=== PATIENT | female | born 1980 | race Hispanic/Latino ===

== ENCOUNTER 2023-05-10 16:07 | Inpatient (IN) | payer SELFPAY ==
[~2023-05-10 16:07] MED LIST: Iopamidol-370 76% 500 ML MDV (1 ML CHARGE) ONE
[2023-05-10] MEDS ORDERED: Morphine 4 MG/ML VIAL ONE (17:04)
[2023-05-10] MEDS ORDERED: Ondansetron PF 4 MG/2 ML Vial ONE (17:04)
[2023-05-10 17:13] LABS: #Eosinphils 0.1 thou/uL (0.0-0.7); #Monocytes 0.5 thou/uL (0.11-0.59); #Neutrophils 5.1 thou/uL (1.40-6.50); %Basophils 0.3 % (0.0-1.0); %Eosinophils 0.7 % (0.0-10.0); %Lymphocytes 21.7 % (21.0-51.0); %Monocytes 6.7 % (0.0-10.0); %Neutrophils 70.3 % (42.0-75.0); Mean Corpuscular HGB CONC 32.5 g/dL (32.0-36.0); Mean Corpuscular Hemoglobin 27.1 pg (27.0-31.0); Mean Corpuscular Volume 83.5 fl (78.0-98.0); Mean Platelet Volume 12.1 fL (7.4-10.4); Platelet Count 200 10x3/uL (130-400); RBC Distribution Width 14.5 % (11.5-14.5); Red Blood Cell (RBC) Count 4.42 mill/uL (4.20-5.40); White Blood Cell (WBC) Count 7.3 10x3/uL (4.8-10.8)
[2023-05-10 17:35] LABS: ALT (SGPT) 19 U/L (8-55); AST (SGOT) 15 U/L (5-34); Albumin 4.3 g/dL (3.5-5.0); Alkaline Phosphatase 69 U/L (40-110); Anion Gap 9 mmol/L (10-20); BUN (Urea Nitrogen) 19 mg/dL (7.0-18.7); Bilirubin, Total 0.3 mg/dL (0.2-1.2); Calc. Creatinine Clearance 0 mL/min (70-130); Calcium 9.5 mg/dL (7.8-10.44); Carbon Dioxide 25 mmol/L (22-29); Chloride 108 mmol/L (98-107); Estimated GFR 87; Globulin 3.4 g/dL (2.4-3.5); Glucose 90 mg/dL (70-105); Potassium 3.7 mmol/L (3.5-5.1); Protein, Total 7.7 g/dL (6.0-8.3); Sodium 138 mmol/L (136-145)
[2023-05-10 18:50] LABS: Bacteria/HPF None Seen HPF (None Seen); Bilirubin Negative (Negative); Blood, Urine Negative (Negative); CAUTI Indications for Culture Fever or rigors; Clarity Clear (Clear); Glucose, Urine (Dipstick) Normal (Negative); Ketone, Urine 40 mg/dL (Negative); Leukocyte Negative Leu/uL (Negative); Nitrite Negative (Negative); Protein, Urine (Dipstick) 10 mg/dL (Neg-Trace); RBC/HPF 0-3 HPF (0-3); Specific Gravity, Urine 1.029 (1.002-1.036); Squamous Epithelial 0-3 HPF (0-3); Urobilinogen Normal mg/dL (Less than 2); WBC/HPF 0-3 HPF (0-3)
[2023-05-10 18:51] LABS: Pregnancy Test - Urine (BHCG) Negative (Negative); Pregu Control Background? CLEAR/WHITE (CLR/WHITE); Pregu Control Bar Appear? YES (CONTROL BAR); Specific Gravity 1.029 (1.002-1.036); Urine Culture Reflex No No
[2023-05-10] MEDS ORDERED: HYDROcodone/Acetaminophen 7.5/325 mg Tablet PO PRN (20:46)
[2023-05-10] MEDS ORDERED: Acetaminophen 325 MG TAB PO PRN (20:46)
[2023-05-10] MEDS ORDERED: Morphine 4 MG/ML VIAL SLOW IVP PRN (20:49)
[2023-05-10 23:21] VITALS: BMI 21.8
[2023-05-11 06:20] LABS: #Eosinphils 0.1 thou/uL (0.0-0.7); #Monocytes 0.6 thou/uL (0.11-0.59); #Neutrophils 4.1 thou/uL (1.40-6.50); %Basophils 0.3 % (0.0-1.0); %Eosinophils 1.6 % (0.0-10.0); %Lymphocytes 22.9 % (21.0-51.0); %Monocytes 9.2 % (0.0-10.0); %Neutrophils 65.5 % (42.0-75.0); Hemoglobin 11.4 g/dL (12.0-16.0); Mean Corpuscular HGB CONC 31.6 g/dL (32.0-36.0); Mean Corpuscular Volume 85.5 fl (78.0-98.0); Mean Platelet Volume 12.7 fL (7.4-10.4); Platelet Count 182 10x3/uL (130-400); RBC Distribution Width 14.7 % (11.5-14.5); Red Blood Cell (RBC) Count 4.22 mill/uL (4.20-5.40); White Blood Cell (WBC) Count 6.2 10x3/uL (4.8-10.8)
[2023-05-11 06:32] LABS: Anion Gap 11 mmol/L (10-20); BUN (Urea Nitrogen) 14 mg/dL (7.0-18.7); Calc. Creatinine Clearance 75 mL/min (70-130); Calcium 8.6 mg/dL (7.8-10.44); Carbon Dioxide 21 mmol/L (22-29); Chloride 110 mmol/L (98-107); Estimated GFR 82; Glucose 104 mg/dL (70-105); Potassium 4.1 mmol/L (3.5-5.1); Sodium 138 mmol/L (136-145)
[2023-05-11] MEDS ORDERED: Amoxicillin/Potassium Clav 875 MG TAB PO SCH (09:00)
[2023-05-11 16:15] VITALS: BP 110/75; TEMP 97.7
== END 2023-05-11 17:25 | disposition home or self-care (01) | DRG 598 ==
LOC: ERS 16:07 → SURG A 20:39 → OBSVTOIN 05-11 13:38
PROVIDERS: ADMIT Internal Medicine; ATTEND Internal Medicine
DX: C50.911 Malignant neoplasm of unspecified site of right female breast (principal); C77.3 Secondary and unspecified malignant neoplasm of axilla and upper limb lymph nodes; G89.3 Neoplasm related pain (acute) (chronic); Z79.899 Other long term (current) drug therapy
CPT/HCPCS: 36415; 71275; 80048; 80053; 81001; 81025; 84484; 85025; 93005; 96374; 96375; G0378; J2270; J2405; Q9967

== ENCOUNTER 2023-05-20 10:36 | Outpatient (CLI) | payer OTHER ==
[~2023-05-20 10:36] MED LIST changes: +Iopamidol 370 76% 100 ML VIAL ONE; -Iopamidol-370 76% 500 ML MDV (1 ML CHARGE) ONE
== END 2023-05-20 10:37 | disposition home or self-care (01) ==
LOC: CT 10:36
PROVIDERS: ATTEND Internal Medicine Hematology & Oncology
DX: Z51.11 Encounter for antineoplastic chemotherapy (principal); C50.411 Malignant neoplasm of upper-outer quadrant of right female breast; R59.0 Localized enlarged lymph nodes; Z79.899 Other long term (current) drug therapy
CPT/HCPCS: 71260; 74177; 78306; 93306; A9503; Q9967

== ENCOUNTER 2023-06-06 08:29 | Day surgery (SDC) | payer OTHER ==
[2023-06-04 13:59] VITALS: BMI 22.8
[2023-06-06] MEDS ORDERED: CEFAZOLIN 2 GM VIAL ONE (09:49)
[2023-06-06] MEDS ORDERED: Sodium Chloride 0.9% 100 ML ONE (09:49)
[2023-06-06] MEDS ORDERED: Acetaminophen 500 MG TAB ONE (09:49)
[2023-06-06] MEDS ORDERED: Ketorolac Tromethamine 30 MG/ML VIAL ONE (09:50)
[2023-06-06 10:57] LABS: BHCG - Serum Negative (NEGATIVE); Pregs Control Background? CLEAR/WHITE (CLR/WHITE); Pregs Control Bar Appear? YES (CONTROL BAR)
[2023-06-06] MEDS ORDERED: EPINEPHrine 1 MG/ML AMP ONE (12:02)
[2023-06-06] MEDS ORDERED: Bupivacaine 0.25% HCL 30 ML VIAL ONE (12:02)
[2023-06-06] MEDS ORDERED: fentaNYL PF 100 MCG/2 ML SYRINGE ONE (12:26)
[2023-06-06] MEDS ORDERED: Dexamethasone 20 MG/5 ML VIAL ONE (12:34)
[2023-06-06] MEDS ORDERED: PROPOFOL 200 MG/20 ML VIAL ONE (12:34)
[2023-06-06] MEDS ORDERED: Ondansetron PF 4 MG/2 ML Vial ONE (12:34)
[2023-06-06] MEDS ORDERED: ePHEDrine Sulfate 50 MG/10 ML VIAL ONE (12:34)
[2023-06-06] MEDS ORDERED: Lidocaine 1% PF 5 ML VIAL ONE (12:34)
== END 2023-06-06 14:55 | disposition home or self-care (01) ==
LOC: SDC 08:29
PROVIDERS: ATTEND Specialist
PROC: 0JH Subcutaneous Tissue and Fascia, Insertion (ICD-10-PCS; principal; 2023-06-06)
DX: C50.911 Malignant neoplasm of unspecified site of right female breast (principal); Z17.0 Estrogen receptor positive status [ER+]; Z87.59 Personal history of other complications of pregnancy, childbirth and the puerperium; Z79.899 Other long term (current) drug therapy
CPT/HCPCS: 71045; 84703; C1788; J0171; J1100; J1642; J1885; J2405; J2704; J3490; S0020

== ENCOUNTER 2023-11-21 07:25 | Day surgery (SDC) | payer OTHER ==
[2023-11-20 10:32] VITALS: BMI 19.3
[2023-11-21] MEDS ORDERED: Acetaminophen 500 MG TAB ONE (09:59)
[2023-11-21] MEDS ORDERED: Ketorolac Tromethamine 30 MG (1 mL) VIAL ONE ×2 (09:59→11:06)
[2023-11-21] MEDS ORDERED: Scopolamine 1 mg/72 hour Patch ONE (10:43)
[2023-11-21] MEDS ORDERED: Isosulfan Blue 50 MG/5 ML VIAL ONE (11:05)
[2023-11-21] MEDS ORDERED: EPINEPHrine 1 MG/ML VIAL ONE (11:05)
[2023-11-21] MEDS ORDERED: PROPOFOL 20 ML ONE (11:06)
[2023-11-21] MEDS ORDERED: Lidocaine 1% PF 5 ML VIAL ONE (11:06)
[2023-11-21] MEDS ORDERED: Dexamethasone 4 mg/ml Vial ONE (11:06)
[2023-11-21] MEDS ORDERED: Bupivacaine 0.25% HCL 30 ML VIAL ONE (11:06)
[2023-11-21] MEDS ORDERED: fentaNYL PF 100 MCG/2 ML SYRINGE ONE (11:06)
[2023-11-21] MEDS ORDERED: Ondansetron PF 4 MG/2 ML Vial ONE (11:06)
[2023-11-21] MEDS ORDERED: Midazolam HCl 2 mg/2 ml Vial ONE (11:06)
[2023-11-21] MEDS ORDERED: CEFAZOLIN 2 GM VIAL ONE (11:20)
[2023-11-21] MEDS ORDERED: Sodium Chloride 0.9% 100 ML ONE (11:20)
[2023-11-21] MEDS ORDERED: PHENYLEPHRINE-NS 100 MCG/ML 10 ML SYRINGE ONE (11:55)
[2023-11-21] MEDS ORDERED: ePHEDrine Sulfate 50 MG/10 ML VIAL ONE (13:22)
[2023-11-21] MEDS ORDERED: Promethazine HCl 25 MG/ML VIAL IM PRN (13:53)
[2023-11-21] MEDS ORDERED: Ondansetron HCl/PF 4 MG/2 ML Vial IVP PRN (13:53)
[2023-11-21] MEDS ORDERED: HYDROcodone/Acetaminophen 5/325 mg Tablet ONE (15:21)
== END 2023-11-21 17:20 | disposition home or self-care (01) ==
LOC: SDC 07:25
PROVIDERS: ATTEND Specialist
PROC: 0HBT0ZZ Excision of Right Breast, Open Approach (ICD-10-PCS; principal; 2023-11-21)
DX: C50.811 Malignant neoplasm of overlapping sites of right female breast (principal); C77.3 Secondary and unspecified malignant neoplasm of axilla and upper limb lymph nodes; Z79.899 Other long term (current) drug therapy; Z17.0 Estrogen receptor positive status [ER+]; Z98.890 Other specified postprocedural states
CPT/HCPCS: 78195; 88307; 88309; A9541; J0171; J0665; J1100; J1885; J2250; J2405; J2704; J3490; Q9968

== ENCOUNTER 2023-12-06 10:41 | Day surgery (SDC) | payer OTHER ==
[2023-12-05 10:59] VITALS: BMI 19.0
[2023-12-06] MEDS ORDERED: Ketorolac Tromethamine 30 MG (1 mL) VIAL ONE ×2 (11:11→11:16)
[2023-12-06] MEDS ORDERED: Acetaminophen 500 MG TAB ONE (11:11)
[2023-12-06] MEDS ORDERED: Lidocaine 1% PF 5 ML VIAL ONE (11:12)
[2023-12-06] MEDS ORDERED: PROPOFOL 20 ML ONE (11:12)
[2023-12-06] MEDS ORDERED: EPINEPHrine 1 MG/ML VIAL ONE (12:20)
[2023-12-06] MEDS ORDERED: Bupivacaine 0.25% HCL 30 ML VIAL ONE (12:20)
[2023-12-06] MEDS ORDERED: fentaNYL PF 100 MCG/2 ML SYRINGE ONE (13:19)
[2023-12-06] MEDS ORDERED: CEFAZOLIN 2 GM VIAL ONE (13:21)
[2023-12-06] MEDS ORDERED: Sodium Chloride 0.9% 100 ML ONE (13:21)
[2023-12-06] MEDS ORDERED: Dexamethasone 20 MG/5 ML VIAL ONE (13:29)
[2023-12-06] MEDS ORDERED: Glycopyrrolate 0.2 MG/ML 5 ML SYRINGE ONE (13:35)
[2023-12-06] MEDS ORDERED: Esmolol 100 MG/10 ML VIAL ONE (14:02)
[2023-12-06] MEDS ORDERED: Ondansetron PF 4 MG/2 ML Vial ONE (14:26)
[2023-12-06] MEDS ORDERED: Meperidine HCl/PF 25 MG (1 mL) VIAL ONE (15:01)
[2023-12-06] MEDS ORDERED: HYDROcodone/Acetaminophen 5/325 mg Tablet ONE (16:16)
== END 2023-12-06 17:52 | disposition home or self-care (01) ==
LOC: SDC 10:41
PROVIDERS: ATTEND Specialist
PROC: 0HB5XZX Excision of Chest Skin, External Approach, Diagnostic (ICD-10-PCS; principal; 2023-12-06)
PROC: 07B50ZZ Excision of Right Axillary Lymphatic, Open Approach (ICD-10-PCS; principal; 2023-12-06)
DX: C50.811 Malignant neoplasm of overlapping sites of right female breast (principal); C77.3 Secondary and unspecified malignant neoplasm of axilla and upper limb lymph nodes; Z79.899 Other long term (current) drug therapy
CPT/HCPCS: 88307; 88342; C1713; J0171; J0665; J1100; J1885; J2175; J2405; J2704; J3490

== ENCOUNTER 2024-01-07 09:51 | Outpatient (CLI) | payer OTHER ==
[2024-01-07] MEDS ORDERED: Iopamidol 370 76% 100 ML VIAL ONE (14:29)
== END 2024-01-07 09:52 | disposition home or self-care (01) ==
LOC: CT 09:51
PROVIDERS: ATTEND Internal Medicine Hematology & Oncology
DX: C50.411 Malignant neoplasm of upper-outer quadrant of right female breast (principal); R91.1 Solitary pulmonary nodule; Z98.890 Other specified postprocedural states
CPT/HCPCS: 71260; 74177; 78306; A9503; Q9967

== ENCOUNTER 2024-08-22 09:21 | Emergency (ER) | payer OTHER ==
[2024-08-22] MEDS ORDERED: Ketorolac Tromethamine 30 MG (1 mL) VIAL ONE (10:28)
[2024-08-22 10:46] LABS: #Basophils Less than 0.03 10x3/uL (0.0-0.2); #Eosinophils Less than 0.03 10x3/uL (0.0-0.7); %Basophils 0.4 % (0.0-1.0); %Eosinophils 0.4 % (0.0-10.0); %Monocytes 8.6 % (0.0-10.0); %Neutrophils 67.6 % (42.0-75.0); Hematocrit 31.9 % (36.0-47.0); Mean Corpuscular HGB CONC 34.5 g/dL (32.0-36.0); Mean Corpuscular Hemoglobin 36.3 pg (27.0-31.0); Mean Corpuscular Volume 105.3 fL (78.0-98.0); Mean Platelet Volume 10.5 fL (7.4-10.4); Platelet Count 157 10x3/uL (130-400); RBC Distribution Width 12.7 % (11.5-14.5); Red Blood Cell (RBC) Count 3.03 mill/uL (4.20-5.40)
[2024-08-22 10:59] LABS: BHCG - Serum Negative (NEGATIVE); Pregs Control Background? CLEAR/WHITE (CLR/WHITE); Pregs Control Bar Appear? YES (CONTROL BAR)
[2024-08-22 11:07] LABS: ALT (SGPT) 14 U/L (8-55); AST (SGOT) 17 U/L (5-34); Albumin 4.2 g/dL (3.5-5.0); Alkaline Phosphatase 74 U/L (40-110); Anion Gap 13 mmol/L (10-20); BUN (Urea Nitrogen) 13 mg/dL (7.0-18.7); Bilirubin, Total 0.3 mg/dL (0.2-1.2); Calc. Creatinine Clearance 0 mL/min (70-130); Calcium 10.1 mg/dL (7.8-10.44); Carbon Dioxide 24 mmol/L (22-29); Chloride 108 mmol/L (98-107); Estimated GFR 66; Globulin 3.7 g/dL (2.4-3.5); Glucose 71 mg/dL (70-105); Protein, Total 7.9 g/dL (6.0-8.3); Sodium 141 mmol/L (136-145)
[2024-08-22] MEDS ORDERED: Iopamidol-370 76% 500 ML MDV (1 ML CHARGE) ONE (11:24)
[2024-08-22 11:25] LABS: Bacteria/HPF None Seen HPF (None Seen); Bilirubin Negative (Negative); Blood, Urine Negative (Negative); CAUTI Indications for Culture Dysuria,urgency,freq; Clarity Clear (Clear); Glucose, Urine (Dipstick) Normal (Negative); Ketone, Urine Negative (Negative); Leukocyte 25 Leu/uL (Negative); Nitrite Negative (Negative); Protein, Urine (Dipstick) Negative (Neg-Trace); RBC/HPF 0-3 HPF (0-3); Specific Gravity, Urine 1.002 (1.002-1.036); Squamous Epithelial 0-3 HPF (0-3); Urobilinogen Normal mg/dL (Less than 2)
[2024-08-22 11:26] LABS: Urine Culture Reflex No No
== END 2024-08-22 12:50 | disposition home or self-care (01) ==
LOC: ERS 09:21
DX: R10.9 Unspecified abdominal pain (principal)
CPT/HCPCS: 74177; 80053; 81001; 84703; 85025; 96374; J1885; Q9967

== ENCOUNTER 2024-11-11 13:28 | Outpatient (CLI) | payer OTHER | END 2024-11-11 13:29 | disposition home or self-care (01) | LOC: BICMAMMO 13:28 | PROVIDERS: ATTEND Specialist | DX: Z08 Encounter for follow-up examination after completed treatment for malignant neoplasm (principal); Z85.3 Personal history of malignant neoplasm of breast | CPT/HCPCS: G0279 ==

== ENCOUNTER 2024-11-20 09:52 | Emergency (ER) | payer OTHER ==
[2024-11-20] MEDS ORDERED: Ketorolac Tromethamine 30 MG (1 mL) VIAL ONE (11:08)
== END 2024-11-20 11:54 | disposition home or self-care (01) ==
LOC: ERS 09:52
DX: M25.512 Pain in left shoulder (principal)
CPT/HCPCS: 96372; 99282; J1885

== ENCOUNTER 2025-07-01 14:13 | Outpatient (CLI) | payer OTHER | END 2025-07-01 14:14 | disposition home or self-care (01) | LOC: BICMAMMO 14:13 | PROVIDERS: ATTEND Nurse Practitioner Adult Health | DX: C50.411 Malignant neoplasm of upper-outer quadrant of right female breast (principal); N20.0 Calculus of kidney | CPT/HCPCS: 77080 ==

== ENCOUNTER 2025-09-22 13:18 | Outpatient (CLI) | payer OTHER | END 2025-09-22 13:19 | disposition home or self-care (01) | LOC: SCSULT 13:18 | PROVIDERS: ATTEND Internal Medicine Hematology & Oncology | DX: C50.411 Malignant neoplasm of upper-outer quadrant of right female breast (principal); N20.0 Calculus of kidney | CPT/HCPCS: 76705; 93976 ==